=== PATIENT | female | born 1955 | race Caucasian/White ===

== ENCOUNTER 2017-11-20 12:26 | Outpatient (CLI) | payer OTHER ==
--- NOTE | 2017-11-20 14:30 | RAD ---
CHEST TWO VIEWS: 11/20/17 HISTORY: Dyspnea. COMPARISON: None. FINDINGS: Atherosclerosis of the aortic knob. Normal cardiac silhouette. Pulmonary vessels and hilum are normal . Costophrenic angles are clear. Lungs are hyperinflated, without consolidation or mass. No pneumotho rax or osseous abnormalities. IMPRESSION: 1. No acute cardiopulmonary process. 2. Atherosclerosis. POS: [facility]
== END 2017-11-20 12:27 | disposition home or self-care (01) ==
LOC: RAD 12:26
PROVIDERS: ATTEND Internal Medicine Critical Care Medicine
DX: R06.00 Dyspnea, unspecified (principal); I70.0 Atherosclerosis of aorta
CPT/HCPCS: 71046

== ENCOUNTER 2018-06-19 10:30 | Outpatient (CLI) | payer OTHER ==
--- NOTE | 2018-06-19 14:29 | MMO ---
Bilateral MAMMO Bilat Screen [facility]. CLINICAL HISTORY: Patient is 63 years old and is seen for screening. The patient has no family history of breast cancer. The patient has no personal history of cancer. VIEWS: The views performed were: bilateral craniocaudal and bilateral mediolateral oblique. FILMS COMPARED: The present examination has been compared to a prior imaging study performed at [facility] on 04/09/2016. This study has been interpreted with the assistance of computer-aided detection. MAMMOGRAM FINDINGS: The breasts are almost entirely fat. There are no suspicious masses, suspicious calcifications, or new areas of architectural distortion. IMPRESSION: THERE IS NO MAMMOGRAPHIC EVIDENCE OF MALIGNANCY. A ROUTINE FOLLOW-UP MAMMOGRAM IN 1 YEAR IS RECOMMENDED. ACR BI-RADS Category 1 - Negative MAMMOGRAPHY NOTE: 1. A negative mammogram report should not delay a biopsy if a dominant of clinically suspicious mass is present. 2. Approximately 10% to 15% of breast cancers are not detected by mammography. 3. Adenosis and dense breasts may obscure an underlying neoplasm.
== END 2018-06-19 10:31 | disposition home or self-care (01) ==
LOC: SCSMAMMO 10:30
PROVIDERS: ATTEND Family Medicine
DX: Z12.31 Encounter for screening mammogram for malignant neoplasm of breast (principal)
CPT/HCPCS: 77067

== ENCOUNTER 2020-08-08 13:08 | Outpatient (CLI) | payer MEDICARE | END 2020-08-08 13:09 | disposition home or self-care (01) | LOC: BICCT 13:08 | PROVIDERS: ATTEND Family Medicine | DX: Z12.2 Encounter for screening for malignant neoplasm of respiratory organs (principal); Z87.891 Personal history of nicotine dependence | CPT/HCPCS: 71271 ==

== ENCOUNTER 2020-08-16 07:56 | Outpatient (CLI) | payer MEDICARE | END 2020-08-16 07:57 | disposition home or self-care (01) | LOC: PET 07:56 | PROVIDERS: ATTEND Family Medicine | DX: R91.1 Solitary pulmonary nodule (principal); F17.200 Nicotine dependence, unspecified, uncomplicated | CPT/HCPCS: 78815; A9552 ==

== ENCOUNTER 2020-08-31 12:36 | Outpatient (CLI) | payer MEDICARE ==
[~2020-08-31 12:36] MED LIST: Iopamidol-370 76% 500 ML 1 ML ONE
== END 2020-08-31 12:37 | disposition home or self-care (01) ==
LOC: BICCT 12:36
PROVIDERS: ATTEND Internal Medicine Hematology & Oncology
DX: R91.1 Solitary pulmonary nodule (principal); R59.0 Localized enlarged lymph nodes; C78.1 Secondary malignant neoplasm of mediastinum; N83.202 Unspecified ovarian cyst, left side
CPT/HCPCS: 71260; 74177; Q9967

== ENCOUNTER 2020-09-14 06:53 | Day surgery (SDC) | payer MEDICARE ==
[2020-09-13 12:42] VITALS: BMI 34.3
[2020-09-14] MEDS ORDERED: PROPOFOL 200 MG/20 ML VIAL ONE (09:03)
[2020-09-14] MEDS ORDERED: Lidocaine 1% PF 5 ML VIAL ONE (09:03)
[2020-09-14] MEDS ORDERED: Glycopyrrolate 0.2 MG/ML 5 ML SYRINGE ONE (09:03)
== END 2020-09-14 10:49 | disposition home or self-care (01) ==
LOC: SDC 06:53
PROVIDERS: ATTEND Internal Medicine
PROC: 0DBL8ZX Excision of Transverse Colon, Via Natural or Artificial Opening Endoscopic, Diagnostic (ICD-10-PCS; principal; 2020-09-14)
DX: Z12.11 Encounter for screening for malignant neoplasm of colon (principal); K63.5 Polyp of colon; K62.89 Other specified diseases of anus and rectum; I10 Essential (primary) hypertension; E78.5 Hyperlipidemia, unspecified; J44.9 Chronic obstructive pulmonary disease, unspecified; E03.9 Hypothyroidism, unspecified; E66.9 Obesity, unspecified; Z68.34 Body mass index [BMI] 34.0-34.9, adult; Z87.891 Personal history of nicotine dependence; Z79.52 Long term (current) use of systemic steroids; Z79.82 Long term (current) use of aspirin; Z79.899 Other long term (current) drug therapy; Z99.81 Dependence on supplemental oxygen
CPT/HCPCS: 88305; J2704

== ENCOUNTER 2021-09-15 08:24 | Outpatient (CLI) | payer MEDICARE | END 2021-09-15 08:25 | disposition home or self-care (01) | LOC: CT 08:24 | PROVIDERS: ATTEND Internal Medicine Critical Care Medicine | DX: R91.1 Solitary pulmonary nodule (principal); R91.8 Other nonspecific abnormal finding of lung field; I31.3 Pericardial effusion (noninflammatory); J90 Pleural effusion, not elsewhere classified; R59.0 Localized enlarged lymph nodes | CPT/HCPCS: 71250; 82565 ==

== ENCOUNTER 2022-04-12 18:17 | Inpatient (IN) | payer MEDICARE ==
[2022-04-12] MEDS ORDERED: Ipratropium/Albuterol 3 ML NEB ONE (18:24)
[2022-04-12 18:38] LABS: #Eosinphils 0.1 thou/uL (0.0-0.7); #Lymphocytes 2.4 thou/uL (1.20-3.40); #Monocytes 0.8 thou/uL (0.11-0.59); #Neutrophils 9.2 thou/uL (1.40-6.50); %Eosinophils 0.5 % (0.0-10.0); %Lymphocytes 19.4 % (21.0-51.0); %Monocytes 6.1 % (0.0-10.0); Hemoglobin 13.6 g/dL (12.0-16.0); Mean Corpuscular Hemoglobin 30.4 pg (27.0-31.0); Mean Corpuscular Volume 98.2 fl (78.0-98.0); Mean Platelet Volume 8.7 fL (7.4-10.4); Platelet Count 209 10x3/uL (130-400); Red Blood Cell (RBC) Count 4.45 mill/uL (4.20-5.40); White Blood Cell (WBC) Count 12.4 10x3/uL (4.8-10.8)
[2022-04-12 18:54] LABS: PTT 24.1 sec (22.9-36.1)
[2022-04-12] MEDS ORDERED: Vancomycin 1.5 GRAM/300 ML BAG 1.5 GM in Premix Bag 1 BAG IVPB SCH (19:30)
[2022-04-12 19:40] LABS: Actual Bicarbonate (HCO3a) 33.3 mEq/L (22-28); Base Excess (BEa) 4.2 mEq/L (-2.0 to +3.0); Calcium, Ionized (arterial) 1.17 mmol/L (1.12-1.30); Carboxyhemoglobin (COHb) 0.6 gm% (0.0-3.0); Hemoglobin (Hb) 13.8 g/dL (12.0-16.0); O2 Tension (PaO2), arterial 93.1 mmHg (> 80.0); Potassium - ABG Lab 3.81 mmol/L (3.70-5.30); pH, Arterial 7.28 (7.35-7.45)
[2022-04-12 19:43] LABS: ALV-art Gradient 172.275 mmHg (0-20); CO2 Tension 72.9 mmHg (35.0-45.0); Puncture Site LRA
[2022-04-12] MEDS ORDERED: Albuterol 2.5 MG/0.5 ML NEB ONE ×4 (19:55→19:56)
[2022-04-12 20:03] LABS: SARS-CoV-2 NAA Rapid Test Not Detected (NotDetected)
[2022-04-12 20:05] LABS: ALT (SGPT) 12 U/L (8-55); AST (SGOT) 16 U/L (5-34); Albumin 3.7 g/dL (3.4-4.8); Alkaline Phosphatase 69 U/L (40-110); Anion Gap 16 mmol/L (10-20); BUN (Urea Nitrogen) 18 mg/dL (9.8-20.1); Bilirubin, Total 0.6 mg/dL (0.2-1.2); Calc. Creatinine Clearance 0 mL/min (70-130); Calcium 9.4 mg/dL (7.8-10.44); Carbon Dioxide 29 mmol/L (23-31); Chloride 104 mmol/L (98-107); Estimated GFR 47; Globulin 3.2 g/dL (2.4-3.5); Glucose 153 mg/dL (80-115); Potassium 3.9 mmol/L (3.5-5.1); Protein, Total 6.9 g/dL (5.8-8.1); Sodium 145 mmol/L (136-145)
[2022-04-12] MEDS ORDERED: Cefepime 2 GM VIAL ONE (20:38)
[2022-04-12] MEDS ORDERED: Ipratropium/Albuterol 3 ML NEB NEB PRN (21:58)
[2022-04-12 22:11] LABS: Lactic Acid 5.7 mmol/L (0.5-2.2)
[2022-04-12 23:29] VITALS: BMI 35.1
[2022-04-12] MEDS: Lactated Ringer's 1,000 ML IV SCH (23:52)
[2022-04-13] MEDS: Ipratropium/Albuterol 3 ML NEB NEB SCH ×7 (00:22→22:15)
[2022-04-13 00:29] LABS: Lactic Acid 6.9 mmol/L (0.5-2.2)
[2022-04-13] MEDS ORDERED: Vancomycin HCl 500 MG in Sodium Chloride 0.9% 100 ML IVPB SCH (01:00)
[2022-04-13 03:50] LABS: #Lymphocytes 0.4 thou/uL (1.20-3.40); #Monocytes 0.1 thou/uL (0.11-0.59); #Neutrophils 10.4 thou/uL (1.40-6.50); %Eosinophils 0.1 % (0.0-10.0); %Lymphocytes 3.7 % (21.0-51.0); %Monocytes 0.7 % (0.0-10.0); %Neutrophils 95.5 % (42.0-75.0); Hemoglobin 12.3 g/dL (12.0-16.0); Mean Corpuscular HGB CONC 30.7 g/dL (32.0-36.0); Mean Corpuscular Hemoglobin 30.5 pg (27.0-31.0); Mean Corpuscular Volume 99.1 fl (78.0-98.0); Mean Platelet Volume 8.7 fL (7.4-10.4); Platelet Count 213 10x3/uL (130-400); Red Blood Cell (RBC) Count 4.04 mill/uL (4.20-5.40); White Blood Cell (WBC) Count 10.9 10x3/uL (4.8-10.8)
[2022-04-13 04:07] LABS: Anion Gap 17 mmol/L (10-20); BUN (Urea Nitrogen) 20 mg/dL (9.8-20.1); Calc. Creatinine Clearance 93 mL/min (70-130); Calcium 8.6 mg/dL (7.8-10.44); Carbon Dioxide 25 mmol/L (23-31); Chloride 104 mmol/L (98-107); Estimated GFR 60; Glucose 181 mg/dL (80-115); Lactic Acid 6.7 mmol/L (0.5-2.2); Potassium 4.2 mmol/L (3.5-5.1); Sodium 142 mmol/L (136-145)
[2022-04-13] MEDS: Levothyroxine Sodium 25 MCG TAB PO SCH (06:26)
[2022-04-13] MEDS: Lactated Ringer's 1,000 ML IV SCH ×2 (06:26→18:39)
[2022-04-13] MEDS: Potassium Chloride 20 MEQ TAB PO SCH (08:01)
[2022-04-13] MEDS: Primidone 50 MG TAB PO SCH (08:02)
[2022-04-13] MEDS ORDERED: Lisinopril 10 MG TAB PO SCH (09:00)
[2022-04-13 12:24] LABS: Actual Bicarbonate (HCO3a) 31.6 mEq/L (22-28); Base Excess (BEa) 4.3 mEq/L (-2.0 to +3.0); CO2 Tension 59.7 mmHg (35.0-45.0); Calcium, Ionized (arterial) 1.18 mmol/L (1.12-1.30); Carboxyhemoglobin (COHb) 0.6 gm% (0.0-3.0); Hemoglobin (Hb) 13.2 g/dL (12.0-16.0); Potassium - ABG Lab 4.45 mmol/L (3.70-5.30); pH, Arterial 7.34 (7.35-7.45)
[2022-04-13 12:26] LABS: O2 Tension (PaO2), arterial 47.9 mmHg (> 80.0); Puncture Site RBA
[2022-04-13 12:27] LABS: ALV-art Gradient 127.025 mmHg (0-20)
[2022-04-13] MEDS ORDERED: hydrALAZINE 20 MG/ML VIAL SLOW IVP PRN (16:16)
[2022-04-13] MEDS ORDERED: hydrOXYzine 25 MG TAB PO PRN (16:18)
[2022-04-13] MEDS: Atorvastatin Calcium 40 MG TAB PO SCH (20:12)
[2022-04-13] MEDS: Gabapentin 300 MG CAP PO SCH (20:12)
[2022-04-13] MEDS ORDERED: Vancomycin HCl 1.5 GM in Sodium Chloride 0.9% 250 ML 300 ML IVPB SCH (22:00)
[2022-04-14] MEDS: methylPREDNISolone Sod Succ/PF 125 MG/2 ML VIAL IVP SCH ×2 (00:21→23:28)
[2022-04-14] MEDS: Lactated Ringer's 1,000 ML IV SCH ×2 (00:22→02:28)
[2022-04-14] MEDS ORDERED: Vancomycin 1.5 GRAM/300 ML BAG 1.5 GM in Premix Bag 1 BAG IVPB SCH (01:00)
[2022-04-14] MEDS: Ipratropium/Albuterol 3 ML NEB NEB SCH ×6 (01:49→21:45)
[2022-04-14] MEDS: Levothyroxine Sodium 25 MCG TAB PO SCH (05:27)
[2022-04-14 08:39] LABS: #Lymphocytes 0.7 thou/uL (1.20-3.40); #Monocytes 0.1 thou/uL (0.11-0.59); #Neutrophils 15.1 thou/uL (1.40-6.50); %Basophils 0.1 % (0.0-1.0); %Eosinophils 0.1 % (0.0-10.0); %Lymphocytes 4.4 % (21.0-51.0); %Monocytes 0.8 % (0.0-10.0); %Neutrophils 94.6 % (42.0-75.0); Hemoglobin 12.3 g/dL (12.0-16.0); Mean Corpuscular Hemoglobin 30.6 pg (27.0-31.0); Mean Corpuscular Volume 98.5 fl (78.0-98.0); Mean Platelet Volume 8.9 fL (7.4-10.4); Platelet Count 188 10x3/uL (130-400); RBC Distribution Width 14.1 % (11.5-14.5); Red Blood Cell (RBC) Count 4.03 mill/uL (4.20-5.40)
[2022-04-14 08:57] LABS: Anion Gap 11 mmol/L (10-20); BUN (Urea Nitrogen) 18 mg/dL (9.8-20.1); Calc. Creatinine Clearance 111 mL/min (70-130); Calcium 9.1 mg/dL (7.8-10.44); Carbon Dioxide 27 mmol/L (23-31); Chloride 106 mmol/L (98-107); Estimated GFR 72; Glucose 134 mg/dL (80-115); Potassium 5.2 mmol/L (3.5-5.1); Sodium 139 mmol/L (136-145)
[2022-04-14] MEDS: Potassium Chloride 20 MEQ TAB PO SCH (09:06)
[2022-04-14] MEDS: Primidone 50 MG TAB PO SCH (09:08)
[2022-04-14] MEDS: Lisinopril 20 MG TAB PO SCH (09:08)
[2022-04-14 12:16] LABS: Potassium 5.1 mmol/L (3.5-5.1)
[2022-04-14 15:15] LABS: Troponin I 0.014 ng/mL (< 0.028)
[2022-04-14] MEDS: Gabapentin 300 MG CAP PO SCH (21:21)
[2022-04-14] MEDS: Atorvastatin Calcium 40 MG TAB PO SCH (21:21)
[2022-04-14] MEDS: Doxycycline 100 MG CAP PO SCH (21:22)
[2022-04-15] MEDS: Ipratropium/Albuterol 3 ML NEB NEB SCH ×6 (02:03→22:23)
[2022-04-15] MEDS: Levothyroxine Sodium 25 MCG TAB PO SCH (05:26)
[2022-04-15 07:11] LABS: #Lymphocytes 0.7 thou/uL (1.20-3.40); #Monocytes 0.1 thou/uL (0.11-0.59); #Neutrophils 12.7 thou/uL (1.40-6.50); %Basophils 0.2 % (0.0-1.0); %Monocytes 0.5 % (0.0-10.0); %Neutrophils 94.3 % (42.0-75.0); Hemoglobin 11.9 g/dL (12.0-16.0); Mean Corpuscular HGB CONC 31.5 g/dL (32.0-36.0); Mean Corpuscular Hemoglobin 30.8 pg (27.0-31.0); Mean Corpuscular Volume 97.7 fl (78.0-98.0); Mean Platelet Volume 9.1 fL (7.4-10.4); Platelet Count 194 10x3/uL (130-400); RBC Distribution Width 14.3 % (11.5-14.5); Red Blood Cell (RBC) Count 3.85 mill/uL (4.20-5.40); White Blood Cell (WBC) Count 13.5 10x3/uL (4.8-10.8)
[2022-04-15 07:32] LABS: Anion Gap 15 mmol/L (10-20); BUN (Urea Nitrogen) 26 mg/dL (9.8-20.1); Calc. Creatinine Clearance 110 mL/min (70-130); Calcium 9.2 mg/dL (7.8-10.44); Carbon Dioxide 27 mmol/L (23-31); Chloride 105 mmol/L (98-107); Estimated GFR 72; Glucose 143 mg/dL (80-115); Potassium 4.9 mmol/L (3.5-5.1); Sodium 142 mmol/L (136-145)
[2022-04-15] MEDS: Doxycycline 100 MG CAP PO SCH ×2 (09:47→20:53)
[2022-04-15] MEDS: Primidone 50 MG TAB PO SCH (09:47)
[2022-04-15] MEDS: Lisinopril 20 MG TAB PO SCH (09:49)
[2022-04-15] MEDS: Gabapentin 300 MG CAP PO SCH (20:53)
[2022-04-15] MEDS: Atorvastatin Calcium 40 MG TAB PO SCH (20:54)
[2022-04-15] MEDS: methylPREDNISolone Sod Succ/PF 125 MG/2 ML VIAL IVP SCH (23:25)
[2022-04-16] MEDS ORDERED: FLU VACC QS2022-23(65YR UP)/PF 240 MCG/0.7 ML SYRINGE IM ONE (01:45)
[2022-04-16] MEDS: Ipratropium/Albuterol 3 ML NEB NEB SCH ×6 (02:39→22:10)
[2022-04-16 05:23] LABS: #Lymphocytes 0.8 thou/uL (1.20-3.40); #Monocytes 0.1 thou/uL (0.11-0.59); #Neutrophils 10.7 thou/uL (1.40-6.50); %Basophils 0.1 % (0.0-1.0); %Eosinophils 0.3 % (0.0-10.0); %Lymphocytes 7.1 % (21.0-51.0); %Monocytes 1.2 % (0.0-10.0); %Neutrophils 91.4 % (42.0-75.0); Hemoglobin 12.7 g/dL (12.0-16.0); Mean Corpuscular HGB CONC 31.8 g/dL (32.0-36.0); Mean Corpuscular Hemoglobin 30.9 pg (27.0-31.0); Mean Corpuscular Volume 97.2 fl (78.0-98.0); Mean Platelet Volume 9.2 fL (7.4-10.4); Platelet Count 192 10x3/uL (130-400); RBC Distribution Width 14.2 % (11.5-14.5); Red Blood Cell (RBC) Count 4.11 mill/uL (4.20-5.40); White Blood Cell (WBC) Count 11.7 10x3/uL (4.8-10.8)
[2022-04-16] MEDS: Levothyroxine Sodium 25 MCG TAB PO SCH (05:27)
[2022-04-16 06:34] LABS: Chloride 104 mmol/L (98-107); Glucose 126 mg/dL (80-115); Sodium 140 mmol/L (136-145)
[2022-04-16 06:36] LABS: Anion Gap 12 mmol/L (10-20); Carbon Dioxide 29 mmol/L (23-31)
[2022-04-16 06:38] LABS: Calc. Creatinine Clearance 112 mL/min (70-130); Estimated GFR 74
[2022-04-16 06:39] LABS: BUN (Urea Nitrogen) 30 mg/dL (9.8-20.1)
[2022-04-16] MEDS: Lisinopril 20 MG TAB PO SCH (09:30)
[2022-04-16] MEDS: Doxycycline 100 MG CAP PO SCH ×2 (09:31→20:36)
[2022-04-16] MEDS: Primidone 50 MG TAB PO SCH (09:32)
[2022-04-16] MEDS ORDERED: Polyethylene Glycol 3350 17 GM Packet PO SCH (12:30)
[2022-04-16] MEDS: Gabapentin 300 MG CAP PO SCH (20:35)
[2022-04-16] MEDS: Atorvastatin Calcium 40 MG TAB PO SCH (20:36)
[2022-04-16] MEDS: methylPREDNISolone Sod Succ/PF 125 MG/2 ML VIAL IVP SCH (22:52)
[2022-04-17] MEDS: Ipratropium/Albuterol 3 ML NEB NEB SCH ×6 (01:57→22:17)
[2022-04-17 04:00] LABS: Hemoglobin 12.6 g/dL (12.0-16.0); Mean Corpuscular HGB CONC 31.7 g/dL (32.0-36.0); Mean Corpuscular Hemoglobin 30.5 pg (27.0-31.0); Mean Corpuscular Volume 96.2 fl (78.0-98.0); RBC Distribution Width 14.4 % (11.5-14.5); Red Blood Cell (RBC) Count 4.13 mill/uL (4.20-5.40); White Blood Cell (WBC) Count 12.2 10x3/uL (4.8-10.8)
[2022-04-17 04:19] LABS: Anion Gap 13 mmol/L (10-20); BUN (Urea Nitrogen) 32 mg/dL (9.8-20.1); Calc. Creatinine Clearance 99 mL/min (70-130); Carbon Dioxide 30 mmol/L (23-31); Chloride 104 mmol/L (98-107); Estimated GFR 64; Glucose 146 mg/dL (80-115); Potassium 4.5 mmol/L (3.5-5.1); Sodium 142 mmol/L (136-145)
[2022-04-17 04:40] LABS: Band 2 % (5-11); Hypochromia SLIGHT = 6-15 cells (100X) (0-5/hpf); Lymphocytes 6 % (21-51); MDiff Complete? YES; Mean Platelet Volume 9.8 fL (7.4-10.4); Monocytes 2 % (0-10); Neutrophil 90 % (42-75); Ovalocytes SLIGHT = 2-5 cells (100X) (0-1/hpf); Platelet Count 114 10x3/uL (130-400); Platelet Morphology Comment Appears Decreased; Vacuoles SLIGHT
[2022-04-17] MEDS: Levothyroxine Sodium 25 MCG TAB PO SCH (04:53)
[2022-04-17] MEDS: Polyethylene Glycol 3350 17 GM Packet PO SCH (09:05)
[2022-04-17] MEDS: Primidone 50 MG TAB PO SCH (09:05)
[2022-04-17] MEDS: Doxycycline 100 MG CAP PO SCH ×2 (09:05→20:29)
[2022-04-17] MEDS: Lisinopril 20 MG TAB PO SCH (09:05)
[2022-04-17] MEDS: Atorvastatin Calcium 40 MG TAB PO SCH (20:29)
[2022-04-17] MEDS: Gabapentin 300 MG CAP PO SCH (20:29)
[2022-04-17] MEDS ORDERED: Amlodipine 5 MG TAB PO SCH (21:00)
[2022-04-17] MEDS: methylPREDNISolone Sod Succ/PF 125 MG/2 ML VIAL IVP SCH (22:46)
[2022-04-18] MEDS: Ipratropium/Albuterol 3 ML NEB NEB SCH ×6 (02:44→22:36)
[2022-04-18 04:35] LABS: Mean Corpuscular HGB CONC 31.8 g/dL (32.0-36.0); Mean Corpuscular Hemoglobin 30.8 pg (27.0-31.0); Mean Corpuscular Volume 97.1 fl (78.0-98.0); Mean Platelet Volume 9.9 fL (7.4-10.4); Platelet Count 192 10x3/uL (130-400); RBC Distribution Width 14.3 % (11.5-14.5); Red Blood Cell (RBC) Count 3.89 mill/uL (4.20-5.40); White Blood Cell (WBC) Count 13.2 10x3/uL (4.8-10.8)
[2022-04-18 04:47] LABS: Anion Gap 11 mmol/L (10-20); BUN (Urea Nitrogen) 31 mg/dL (9.8-20.1); Calc. Creatinine Clearance 91 mL/min (70-130); Calcium 8.5 mg/dL (7.8-10.44); Carbon Dioxide 33 mmol/L (23-31); Chloride 106 mmol/L (98-107); Estimated GFR 57; Glucose 182 mg/dL (80-115); Potassium 4.2 mmol/L (3.5-5.1); Sodium 146 mmol/L (136-145)
[2022-04-18 05:06] LABS: Band 3 % (5-11); Lymphocytes 3 % (21-51); MDiff Complete? YES; Monocytes 1 % (0-10); Neutrophil 93 % (42-75)
[2022-04-18] MEDS: Levothyroxine Sodium 25 MCG TAB PO SCH (06:01)
[2022-04-18] MEDS: Lisinopril 20 MG TAB PO SCH (08:49)
[2022-04-18] MEDS: Polyethylene Glycol 3350 17 GM Packet PO SCH (08:49)
[2022-04-18] MEDS: Doxycycline 100 MG CAP PO SCH ×2 (08:49→19:56)
[2022-04-18] MEDS: Primidone 50 MG TAB PO SCH (08:49)
[2022-04-18] MEDS: Gabapentin 300 MG CAP PO SCH (19:55)
[2022-04-18] MEDS: Amlodipine 5 MG TAB PO SCH (19:55)
[2022-04-18] MEDS: Atorvastatin Calcium 40 MG TAB PO SCH (19:55)
[2022-04-18] MEDS: methylPREDNISolone Sod Succ 40 MG VIAL IVP SCH (19:55)
[2022-04-19] MEDS: Ipratropium/Albuterol 3 ML NEB NEB SCH ×6 (02:56→22:29)
[2022-04-19] MEDS: Levothyroxine Sodium 25 MCG TAB PO SCH (04:11)
[2022-04-19 05:34] LABS: #Lymphocytes 0.9 thou/uL (1.20-3.40); #Monocytes 0.4 thou/uL (0.11-0.59); #Neutrophils 9.8 thou/uL (1.40-6.50); %Basophils 0.2 % (0.0-1.0); %Eosinophils 0.2 % (0.0-10.0); %Lymphocytes 8.3 % (21.0-51.0); %Monocytes 3.6 % (0.0-10.0); %Neutrophils 87.8 % (42.0-75.0); Hemoglobin 11.7 g/dL (12.0-16.0); Mean Corpuscular HGB CONC 31.4 g/dL (32.0-36.0); Mean Corpuscular Hemoglobin 30.7 pg (27.0-31.0); Mean Corpuscular Volume 97.7 fl (78.0-98.0); Platelet Count 192 10x3/uL (130-400); RBC Distribution Width 14.7 % (11.5-14.5); White Blood Cell (WBC) Count 11.2 10x3/uL (4.8-10.8)
[2022-04-19 05:55] LABS: Anion Gap 11 mmol/L (10-20); BUN (Urea Nitrogen) 31 mg/dL (9.8-20.1); Calc. Creatinine Clearance 98 mL/min (70-130); Calcium 8.6 mg/dL (7.8-10.44); Carbon Dioxide 33 mmol/L (23-31); Chloride 105 mmol/L (98-107); Estimated GFR 60; Glucose 150 mg/dL (80-115); Potassium 4.7 mmol/L (3.5-5.1); Sodium 144 mmol/L (136-145)
[2022-04-19] MEDS: methylPREDNISolone Sod Succ 40 MG VIAL IVP SCH (08:41)
[2022-04-19] MEDS: Doxycycline 100 MG CAP PO SCH ×2 (08:41→20:08)
[2022-04-19] MEDS: Polyethylene Glycol 3350 17 GM Packet PO SCH (08:42)
[2022-04-19] MEDS: Primidone 50 MG TAB PO SCH (08:42)
[2022-04-19] MEDS: Lisinopril 20 MG TAB PO SCH (08:42)
[2022-04-19] MEDS: Amlodipine 5 MG TAB PO SCH (20:08)
[2022-04-19] MEDS: Gabapentin 300 MG CAP PO SCH (20:08)
[2022-04-19] MEDS: Atorvastatin Calcium 40 MG TAB PO SCH (20:08)
[2022-04-20] MEDS: Ipratropium/Albuterol 3 ML NEB NEB SCH ×5 (02:43→19:45)
[2022-04-20] MEDS: Levothyroxine Sodium 25 MCG TAB PO SCH (05:04)
[2022-04-20 06:16] LABS: #Eosinphils 0.1 thou/uL (0.0-0.7); #Lymphocytes 2.4 thou/uL (1.20-3.40); #Monocytes 1.1 thou/uL (0.11-0.59); #Neutrophils 7.9 thou/uL (1.40-6.50); %Basophils 0.3 % (0.0-1.0); %Eosinophils 0.6 % (0.0-10.0); %Lymphocytes 20.8 % (21.0-51.0); %Monocytes 9.7 % (0.0-10.0); %Neutrophils 68.8 % (42.0-75.0); Hemoglobin 11.7 g/dL (12.0-16.0); Mean Corpuscular HGB CONC 31.2 g/dL (32.0-36.0); Mean Corpuscular Hemoglobin 30.6 pg (27.0-31.0); Mean Platelet Volume 9.6 fL (7.4-10.4); Platelet Count 191 10x3/uL (130-400); RBC Distribution Width 14.7 % (11.5-14.5); Red Blood Cell (RBC) Count 3.83 mill/uL (4.20-5.40); White Blood Cell (WBC) Count 11.5 10x3/uL (4.8-10.8)
[2022-04-20 06:40] LABS: Anion Gap 12 mmol/L (10-20); BUN (Urea Nitrogen) 27 mg/dL (9.8-20.1); Calc. Creatinine Clearance 101 mL/min (70-130); Calcium 8.6 mg/dL (7.8-10.44); Carbon Dioxide 30 mmol/L (23-31); Chloride 106 mmol/L (98-107); Estimated GFR 65; Glucose 100 mg/dL (80-115); Sodium 144 mmol/L (136-145)
[2022-04-20] MEDS: predniSONE 20 MG TAB PO SCH (07:55)
[2022-04-20] MEDS: Lisinopril 20 MG TAB PO SCH (08:48)
[2022-04-20] MEDS: Polyethylene Glycol 3350 17 GM Packet PO SCH (08:49)
[2022-04-20] MEDS: Doxycycline 100 MG CAP PO SCH ×2 (08:49→20:25)
[2022-04-20] MEDS: Primidone 50 MG TAB PO SCH (09:30)
[2022-04-20] MEDS: Amlodipine 5 MG TAB PO SCH (20:23)
[2022-04-20] MEDS: Atorvastatin Calcium 40 MG TAB PO SCH (20:25)
[2022-04-20] MEDS: Gabapentin 300 MG CAP PO SCH (20:26)
[2022-04-21] MEDS: Ipratropium/Albuterol 3 ML NEB NEB SCH ×5 (00:21→13:45)
[2022-04-21] MEDS: Levothyroxine Sodium 25 MCG TAB PO SCH (05:30)
[2022-04-21 06:10] LABS: #Lymphocytes 2.2 thou/uL (1.20-3.40); #Monocytes 1.1 thou/uL (0.11-0.59); #Neutrophils 8.5 thou/uL (1.40-6.50); %Basophils 0.2 % (0.0-1.0); %Eosinophils 0.4 % (0.0-10.0); %Lymphocytes 18.2 % (21.0-51.0); %Monocytes 9.2 % (0.0-10.0); Mean Corpuscular HGB CONC 31.7 g/dL (32.0-36.0); Mean Corpuscular Volume 97.9 fl (78.0-98.0); Mean Platelet Volume 9.2 fL (7.4-10.4); Platelet Count 204 10x3/uL (130-400); RBC Distribution Width 14.8 % (11.5-14.5); Red Blood Cell (RBC) Count 3.87 mill/uL (4.20-5.40); White Blood Cell (WBC) Count 11.8 10x3/uL (4.8-10.8)
[2022-04-21 06:46] LABS: Anion Gap 11 mmol/L (10-20); BUN (Urea Nitrogen) 23 mg/dL (9.8-20.1); Calc. Creatinine Clearance 103 mL/min (70-130); Calcium 8.7 mg/dL (7.8-10.44); Carbon Dioxide 31 mmol/L (23-31); Chloride 106 mmol/L (98-107); Estimated GFR 66; Glucose 92 mg/dL (80-115); Potassium 4.1 mmol/L (3.5-5.1); Sodium 144 mmol/L (136-145)
[2022-04-21] MEDS: predniSONE 20 MG TAB PO SCH (07:56)
[2022-04-21] MEDS: Primidone 50 MG TAB PO SCH (07:56)
[2022-04-21] MEDS: Polyethylene Glycol 3350 17 GM Packet PO SCH (07:57)
[2022-04-21] MEDS: Lisinopril 20 MG TAB PO SCH (07:57)
[2022-04-21 14:12] VITALS: BP 163/81; TEMP 98.4
== END 2022-04-21 14:29 | disposition home health service (06) | DRG 189 ==
LOC: ERS 18:17 → IMCU/EMU 21:03 → MSONC 04-19 13:05
PROVIDERS: ADMIT Family Medicine; ATTEND Family Medicine
PROC: 5A09357 Assistance with Respiratory Ventilation, Less than 24 Consecutive Hours, Continuous Positive Airway Pressure (ICD-10-PCS; principal; 2022-04-12)
PROC: 5A0945A Assistance with Respiratory Ventilation, 24-96 Consecutive Hours, High Flow/Velocity Cannula (ICD-10-PCS; 2022-04-13)
DX: J96.21 Acute and chronic respiratory failure with hypoxia (principal); E66.2 Morbid (severe) obesity with alveolar hypoventilation; I50.32 Chronic diastolic (congestive) heart failure; N17.9 Acute kidney failure, unspecified; E87.20 Acidosis, unspecified; J44.1 Chronic obstructive pulmonary disease with (acute) exacerbation; J44.0 Chronic obstructive pulmonary disease with (acute) lower respiratory infection; I11.0 Hypertensive heart disease with heart failure; E03.9 Hypothyroidism, unspecified; F17.210 Nicotine dependence, cigarettes, uncomplicated; E87.5 Hyperkalemia; Z66 Do not resuscitate; R91.8 Other nonspecific abnormal finding of lung field; E11.40 Type 2 diabetes mellitus with diabetic neuropathy, unspecified; R91.1 Solitary pulmonary nodule; Z20.822 Contact with and (suspected) exposure to COVID-19; Z79.899 Other long term (current) drug therapy; Z98.890 Other specified postprocedural states; Z68.35 Body mass index [BMI] 35.0-35.9, adult; Z86.16 Personal history of COVID-19; Z90.710 Acquired absence of both cervix and uterus
CPT/HCPCS: 36415; 36600; 71045; 71275; 80048; 80053; 82805; 83605; 83880; 84145; 84484; 85025; 85610; 85730; 87040; 87081; 87811; 93005; 93010; 94640; 96365; 96375; J0360; J0692; J1650; J1956; J2920; J2930; J3370; J3490; J7120; J7512; J7611; J7620